=== PATIENT | female | born 1950 | race Caucasian/White ===

== ENCOUNTER 2022-01-16 14:28 | Emergency (ER) | payer MEDICARE, BC, SELFPAY ==
[2022-01-16 15:08] VITALS: BP 95/65; PULSE 72; RESP 18; TEMP 36.3; O2SAT 99; BMI 23.4
--- NOTE | 2022-01-16 15:48 | ED.URI ---
HPI - URI/Sore Throat General Time Seen by Provider: 15:49 Date Seen: 01/16/22 Chief Complaint: Cough Stated Complaint: Cough Weezing Time Seen by Provider: 01/16/22 15:02 Source: patient, RN notes reviewed and old records reviewed Mode of arrival: ambulatory Limitations: no limitations History of Present Illness HPI Narrative: Margaux is a 71-year-old female normally seen by [facility] who is brought to the emergency room by her son for evaluation of weakness and cough. Patient had the onset of a cough approximately a week ago. She has been getting weaker over the past 9 months and notes that over the past week it is axilla rated. She fell last night falling forward onto her face. She did not experience any loss of consciousness and states that she simply tripped. She denies feeling poorly or any prodromal symptoms. Patient notes that her cough is productive. She does not know if she has had a fever but she states she is always chilled. She denies any nausea vomiting or diarrhea. Her son is concerned because she has been getting weaker and weaker. She lives with her and another son at home in [place]. Patient denies headache or neck pain. She tells me that she has a history of stage III liver failure. She denies history of hepatitis-B C or alcohol use. She does have a history of tobacco use. Unfortunately, I do not have any records here at the [facility] but will attempt to obtain. Related Data Home Medications Medication Instructions Recorded Confirmed linaclotide .ROUTE 01/16/22 rivaroxaban .ROUTE 01/16/22 Allergies Allergy/AdvReac Type Severity Reaction Status Date / Time latex AdvReac Intermediate Nausea Verified 01/16/22 15:11 meperidine AdvReac Intermediate Nausea Verified 01/16/22 15:11 Review of Systems Status of ROS: Reports: 10 or more systems reviewed and unremarkable except as noted in History and below Const: Reports: chills, fatigue and malaise; Denies: fever Eyes: Denies: change in vision ENMT: Denies: throat pain, neck pain, difficulty swallowing or vertigo Cardio: Reports: swelling of feet/ankles (Patient states that this is chronic.) and shortness of breath with exertion (Does not worsen with ambulation); Denies: chest pain or palpitations Resp: Reports: shortness of breath (Does not worsen with ambulation) and cough (Productive); Denies: wheezing or coughing up blood GI: Denies: abdominal pain, nausea, vomiting, diarrhea or difficulty swallowing : Denies: painful urination Musculo: Denies: neck pain Integ/Breast: Denies: rash Neuro: Reports: weakness in extremities (Ongoing for the past 9 months last week axilla rated); Denies: headache, dizziness or vertigo Endo: Reports: fatigue Allergy/Immuno: Denies: wheezing PFSH PFSH Social History Smoking Status: Never smoker Do you use any of these nicotine containing products: None Second hand tobacco smoke exposure: No How often do you have a drink containing alcohol: never How often do you have six or more drinks on one occasion: Never AUDIT-C Alcohol total score: 0 Non-prescribed substance use: denies use service: No Exam Narrative: Exam Narrative: Patient is alert and oriented. She is sitting on the bed in the room wrapped in a blanket. She is pale in appearance. She is fatigued in appearance. Face symmetrical. Oral cavity with moist mucous membranes. Neck is supple without lymphadenopathy. Heart is with regular rate and rhythm. Lungs show decreased breath sounds right mid lung zone with wheezing. She is cachectic in appearance When soft nontender. Lower extremities with 2+ edema. No excessive redness and no calf tenderness. Const: Vital Signs, click to edit/add: Vital Signs - 24 hr 01/16/22 15:08 01/16/22 20:00 01/16/22 19:16 Temperature 97.4 F L Pulse Rate [Pulse Oximeter] 72 Respiratory Rate 18 16 Blood Pressure [Ri ght Upper Arm] 95/65 88/58 L 99/48 L Pulse Oximetry 99 100 99 Oxygen Delivery Me thod Room Air Room Air Room Air 01/16/22 16:00 01/16/22 17:00 01/16/22 18:00 Temperature Pulse Rate [Pulse Oximeter] Respiratory Rate Blood Pressure [Ri ght Upper Arm] 99/58 L 100/68 78/44 L Pulse Oximetry 99 100 100 Oxygen Delivery Me thod Room Air Room Air Room Air Course Course Hospital Course: Patient will receive saline lock, have CBC, comprehensive panel, CRP ordered. Chest x-ray at this time. Urinalysis checked as well. Differential diagnosis includes but is not limited to pneumonia, COPD exacerbation, heart failure, failure to thrive. Reevaluation(s) Reevaluation #1: Patient appears improved after fluids. Occasional productive coughing. Text x-ray read by Radiology shows no evidence of pneumonia. Patient remains afebrile with oxygen at 99% Reevaluation #2: Patient able to ambulate without assistance. Oxygen levels remain 99-100%. Vital Signs Vital signs: Initial Vital Signs Temperature 97.4 F L 01/16/22 15:08 Temperature Source Temporal Artery Scan 01/16/22 15:08 Pulse Rate 72 01/16/22 15:08 Respiratory Rate 18 01/16/22 15:08 Blood Pressure 95/65 01/16/22 15:08 Blood Pressure Mean 75 01/16/22 15:08 Blood Pressure Position Sitting 01/16/22 15:08 Pulse Oximetry 99 01/16/22 15:08 Oxygen Delivery Method 01/16/22 15:08 Vital Signs Temperature 97.4 F L 01/16/22 15:08 Pulse Rate 72 01/16/22 15:08 Respiratory Rate 18 01/16/22 15:08 Blood Pressure 95/65 01/16/22 15:08 Pulse Oximetry 99 01/16/22 15:08 Oxygen Delivery Method 01/16/22 15:08 Temperature 97.4 F L 01/16/22 15:08 Pulse Rate 72 01/16/22 15:08 Respiratory Rate 16 01/16/22 20:00 Blood Pressure 88/58 L 01/16/22 20:00 Pulse Oximetry 100 01/16/22 20:00 Oxygen Delivery Method 01/16/22 20:00 MDM - URI/Sore Throat MDM Narrative Medical decision making narrative: 1. COVID-patient is noted to have COVID for approximately 7 days and therefore not a candidate for antiviral therapy. At this time she is not hypoxic, that is not compromised in kidney function nor does she have leukocytosis. No evidence of pneumonia on x-ray. She is on a novel anticoagulant at this time. 2. Weakness-likely secondary to 1. At this time as she has been able to ambulate in the emergency room independently. I did suggest the use of a walker at home but she states that she does not need a walker. At this time I do not have criteria for admission based on her appearance in the emergency room 3. Head injury-head CT negative. No loss of consciousness but patient is on blood thinners. 4. Elevated proBNP-no evidence of heart failure on chest x-ray. Patient does have chronic lower extremity edema but states this is actually better than normal. 5. . Disposition-home with her son. We did a nebulizer prior to her discharge and objectively she seemed much improved although she did not think she had a lot of improvement. I did talk to her son about help at home and he does not feel that Margaux's or other son would be helpful to her. At this time I do not have criteria for an inpatient admission. I did explain that to family. If Margaux has any worsening symptoms such as vomiting, increasing weakness, chest pain, shortness of breath I would ask him to return to the emergency room for further evaluation. Patient did receive 1 L of saline in the emergency room as well. She appears improved versus initial presentation. Medical Records Medical records narrative: Requested records from [facility] system. Were told none available. Lab Data Attestation: I reviewed the patient's lab results. Labs: Lab Results 01/16/22 01/16/22 01/16/22 Range/Units 16:07 16:21 16:21 WBC 10.24 (4.50-11.00) K/uL RBC 3.43 L (4.00-5.20) m/uL Hgb 10.2 L (12.0-16.0) gm/dL Hct 30.3 L (33.0-51.0) % MCV 88 (80-100) fL MCH 30 (26-34) pg MCHC 34 (32-36) gm/dL RDW Coeff of Michael 20.7 H (11.5-15.5) % Plt Count 227 (140-440) K/uL Neut % (Auto) 77.3 H (42.0-72.0) % Lymph % (Auto) 18.7 L (20-44) % [place] % (Auto) 2.9 (0.0-11.0) % Eos % (Auto) 0.8 (0.0-7.0) % Baso % (Auto) 0.2 (0.0-3.0) % Neut # (Auto) 7.90 H (1.7-7.0) K/uL Lymph # (Auto) 1.90 (0.90-2.90) K/uL Y[place] # (Auto) 0.30 (0.00-0.90) K/UL Eos # (Auto) 0.08 (0.00-0.50) K/uL Baso # (Auto) 0.02 (0.00-0.30) K/uL Abs Immat Gran (auto) 0.01 (0.00-0.30) K/uL Sodium 137 (135-149) mmol/L Potassium 3.4 L (3.6-5.1) mmol/L Chloride 111 (96-114) mmol/L Carbon Dioxide 17 L (20-32) mmol/L BUN 11 (7-30) mg/dL Creatinine 1.1 (0.5-1.5) mg/dL Estimated Creat Clear 45.19 Estimated GFR 54 ml/min Glucose 82 (60-115) mg/dL Calcium 7.3 L (8.4-10.6) mg/dL Total Bilirubin 1.1 (0.1-1.5) mg/dL AST 42 H (12-35) U/L ALT 26 (4-35) U/L Alkaline Phosphatase 183 H (40-150) U/L C-Reactive Protein 3.8 H (0.5-1.0) mg/dL NT-Pro-B Natriuret Pep 1220 H (0-125) PG/mL Total Protein 5.9 L (6.0-8.3) g/dL Albumin 2.3 L (3.3-5.0) g/dL SARS-CoV-2 (PCR) POSITIVE SARS-CoV-2 A (Negative) Influenza Type A (PCR) Negative PCR FLU A (Negative) Influenza Type B (PCR) Negative PCR FLU B (Negative) Imaging Data Chest x-ray: Attestation: I have reviewed the pertinent imaging results. My impression: Increased lung markings but no obvious infiltrates Radiologist's impression: None. FINDINGS: Lungs: Clear lungs. No consolidation. Pleura: No pleural effusion or pneumothorax. Heart and Mediastinum: The cardiomediastinal silhouette is normal. The vessels are unremarkable. Bones: Unremarkable. IMPRESSION: No acute cardiopulmonary disease. CT scan - head: Attestation: I have reviewed the pertinent imaging results. My impression: No acute bleed. Radiologist's impression: Brain parenchyma and extra-axial spaces: The dunham-white differentiation is normal.? No sign of mass, hemorrhage, or midline shift. No extra-axial fluid collection.? Skull base and calvarium: Mild mucosal thickening of the maxillary sinuses. The other visualized paranasal sinuses and mastoid air cells demonstrate no acute or significant findings.? The visualized orbits are grossly unremarkable.? No skull fractures.? IMPRESSION: No acute intracranial abnormality. Discharge Plan Discharge Clinical Impression: COVID, Weakness Patient Disposition: Home w/ Parent or Adult Condition: Improved Additional Instructions: Recommend pushing fluids. Return to the emergency room for worsening symptoms. Currently your oxygen level is 99% and therefore normal. Suggest using walker or cane at home when ambulating to prevent fall. Prescriptions: No Action rivaroxaban [Xarelto] .ROUTE linaclotide [Linzess] .ROUTE Stand Alone [facility]: [facility]
[2022-01-16 16:00] VITALS: BP 99/58; O2SAT 99
--- NOTE | 2022-01-16 16:01 | CRLHL7_ITS ---
For Patients: As a result of the Cures Act, medical imaging exams and procedure reports are released immediately into your electronic medical record. You may view this report before your referring provider. If you have questions, please contact your health care provider. INDICATION: Cough. TECHNIQUE: Chest 1 views. COMPARISON: None. FINDINGS: Lungs: Clear lungs. No consolidation. Pleura: No pleural effusion or pneumothorax. Heart and Mediastinum: The cardiomediastinal silhouette is normal. The vessels are unremarkable. Bones: Unremarkable. IMPRESSION: No acute cardiopulmonary disease. Dictated by Dhaval Devi MD @ 01/16/2022 4:51:46 PM (Electronically Signed)
[2022-01-16 16:27] LABS: Basophils Absolute Auto 0.02 K/uL (0.00-0.30); Basophils Percent Auto 0.2 % (0.0-3.0); Eosinophils Absolute Auto 0.08 K/uL (0.00-0.50); Eosinophils Percent Auto 0.8 % (0.0-7.0); Hematocrit 30.3 % (33.0-51.0); Hemoglobin* 10.2 gm/dL (12.0-16.0); Immature Granulocytes Abs Auto 0.01 K/uL (0.00-0.30); Lymphocytes Percent Auto 18.7 % (20-44); Mean Corpuscular HGB Conc 34 gm/dL (32-36); Mean Corpuscular Hemoglobin 30 pg (26-34); Mean Corpuscular Volume 88 fL (80-100); Monocytes Percent Auto 2.9 % (0.0-11.0); Neutrophils Percent Auto 77.3 % (42.0-72.0); Platelet Count* 227 K/uL (140-440); RDW Coefficient of Variation % 20.7 % (11.5-15.5); Red Blood Count 3.43 m/uL (4.00-5.20); White Blood Count* 10.24 K/uL (4.50-11.00)
[2022-01-16 16:33] LABS: Slide Review Reflex No
[2022-01-16 16:42] LABS: Albumin* 2.3 g/dL (3.3-5.0); Chloride* 111 mmol/L (96-114); Sodium* 137 mmol/L (135-149)
[2022-01-16 16:43] LABS: Potassium* 3.4 mmol/L (3.6-5.1)
[2022-01-16 16:45] LABS: Alanine Aminotransferase* 26 U/L (4-35); Alkaline Phosphatase* 183 U/L (40-150); Aspartate Amino Transferase* 42 U/L (12-35); Bilirubin Total* 1.1 mg/dL (0.1-1.5); Blood Urea Nitrogen* 11 mg/dL (7-30); Carbon Dioxide* 17 mmol/L (20-32); Creatinine* 1.1 mg/dL (0.5-1.5); Est. Creatinine Clearance* 45.19; Estimated Glomerular Filt Rate 54 ml/min; Total Protein* 5.9 g/dL (6.0-8.3)
[2022-01-16 16:46] LABS: Calcium* 7.3 mg/dL (8.4-10.6); Glucose* 82 mg/dL (60-115)
[2022-01-16 16:48] LABS: C Reactive Protein* 3.8 mg/dL (0.5-1.0)
[2022-01-16 16:54] LABS: NT Pro B Type NatriureticPept* 1220 PG/mL (0-125)
[2022-01-16 17:00] VITALS: BP 100/68; O2SAT 100
[2022-01-16 17:05] LABS: PCR FLU A Negative PCR FLU A (Negative); PCR FLU B Negative PCR FLU B (Negative)
[2022-01-16 17:07] LABS: SARS PCR* POSITIVE SARS-CoV-2 (Negative)
--- NOTE | 2022-01-16 17:40 | CRLHL7_ITS ---
For Patients: As a result of the Century Cures Act, medical imaging exams and procedure reports are released immediately into your electronic medical record. You may view this report before your referring provider. If you have questions, please contact your health care provider. INDICATION: Fall, on Xarelto. TECHNIQUE: CT head without contrast. Coronal and sagittal reformats were generated. COMPARISON: None. FINDINGS: CSF spaces: Within normal limits for age. Brain parenchyma and extra-axial spaces: The dunham-white differentiation is normal. No sign of mass, hemorrhage, or midline shift. No extra-axial fluid collection. Skull base and calvarium: Mild mucosal thickening of the maxillary sinuses. The other visualized paranasal sinuses and mastoid air cells demonstrate no acute or significant findings. The visualized orbits are grossly unremarkable. No skull fractures. IMPRESSION: No acute intracranial abnormality. Please note that all CT scans at this facility use dose modulation, iterative reconstruction, and/or weight-based dosing when appropriate to reduce radiation dose to as low as reasonably achievable. Dictated by Dhaval Devi MD @ 01/16/2022 6:40:17 PM (Electronically Signed)
[2022-01-16 18:00] VITALS: BP 78/44; O2SAT 100
[2022-01-16] MEDS: 0.9 % SODIUM CHLORIDE 1000 ml 1,000 ML IV (18:10)
[2022-01-16] MEDS: 0.9 % SODIUM CHLORIDE 500 ML 500 ML IV (18:12)
[2022-01-16 19:16] VITALS: BP 99/48; O2SAT 99
[2022-01-16] MEDS: IPRAT-ALBUT 0.5-2.5 MG/3 ML NEB 1 NEB IH (19:27)
[2022-01-16 20:00] VITALS: BP 88/58; RESP 16; O2SAT 100
== END 2022-01-16 19:57 | disposition home or self-care (01) ==
PROVIDERS: Emergency Provider Family Medicine
DX: U07.1 COVID-19 (principal); R53.1 Weakness
CPT/HCPCS: 36415; 70450; 71045; 80053; 81001; 83880; 85025; 86140; 87631; 94640; 99284; 99285; J7030; J7120

== ENCOUNTER 2022-01-18 09:37 | Emergency (ER) | payer MEDICARE, BC, SELFPAY ==
[2022-01-18] VITALS (89 sets, daily range): BP systolic 73–123; BP diastolic 37–82; PULSE 44–110; TEMP 36.3; O2SAT 88–100; BMI 23.7
--- NOTE | 2022-01-18 09:50 | ED.NURSE ---
Pt incontinent of urine shortly after arrival. Pt soiled clothes removed and pt cleaned with padmini wipes. Clean brief applied.
[2022-01-18 10:20] LABS: SARS Antigen* positive (Negative)
--- NOTE | 2022-01-18 11:01 | CRLHL7_ITS ---
For Patients: As a result of the Century Cures Act, medical imaging exams and procedure reports are released immediately into your electronic medical record. You may view this report before your referring provider. If you have questions, please contact your health care provider. INDICATION: COUGH COVID TECHNIQUE: Chest 1 view COMPARISON: 01/16/2022 FINDINGS: Mild areas of scarring are noted bilaterally. Mediastinum is similar. No dense infiltrate. No edema or effusion. No pneumothorax. Degenerative changes. IMPRESSION: No acute findings. Dictated by Gurjit Carroll MD @ 01/18/2022 11:40:23 AM (Electronically Signed)
--- NOTE | 2022-01-18 11:01 | CRLHL7_ITS ---
For Patients: As a result of the Century Cures Act, medical imaging exams and procedure reports are released immediately into your electronic medical record. You may view this report before your referring provider. If you have questions, please contact your health care provider. Indication: DISTENDED ABD. COVID + Technique: Noncontrast CT abdomen and pelvis Please note that all CT scans at this facility use dose modulation, iterative reconstruction, and/or weight-based dosing when appropriate to reduce radiation dose to as low as reasonably achievable. Comparison: None Findings: Dependent areas of atelectasis are present within both lung bases. No pleural effusion. Cardiomegaly. Trace pericardial effusion suspected. Diffuse low attenuation of the hepatic parenchyma is present. There is a small amount of ascites surrounding the liver and spleen. The bladder is normal. Uterus unremarkable. No adnexal mass. Bilateral tubal ligation clips. Increased stool within the sigmoid colon. Mildly distended fluid-filled loops of ileum and jejunum. Mild wall thickening of the colon noted diffusely. Postop changes of midline abdominal wall incision. No abdominal wall hernia. No free air. Diffuse stranding within the mesenteric fat throughout the abdomen and pelvis. No adenopathy. No drainable fluid collection. Small amount of pelvic ascites. No hydronephrosis. Hemorrhagic or proteinaceous cyst upper pole left kidney. Simple cysts upper pole left kidney. No renal stone. Thickening of the adrenal glands. The gallbladder appears absent. 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 the pancreas is difficult to visualize. No fracture. Impression: Mild circumferential wall thickening of the colon and mildly distended fluid-filled loops of small bowel involving the jejunum and ileum suggesting diffuse enteritis/colitis or intrinsic pathology such as hypoalbuminemia. No mechanical obstruction or free air. Diffuse mesenteric stranding with mild ascites. No drainable fluid collection or abscess. Severe fatty steatosis. Possible cirrhosis. No splenomegaly. Postoperative changes to the upper abdomen. Pancreas is difficult to appreciate due to diminutive morphology without suspicious finding. Please note that all CT scans at this facility use dose modulation, iterative reconstruction, and/or weight-based dosing when appropriate to reduce radiation dose to as low as reasonably achievable. Dictated by Gurjit Carroll MD @ 01/18/2022 12:41:44 PM (Electronically Signed)
[2022-01-18] MEDS: 0.9 % SODIUM CHLORIDE 1000 ml 1,000 ML 500 ML IV (11:05)
--- NOTE | 2022-01-18 11:18 | CRLHL7_ITS ---
For Patients: As a result of the Century Cures Act, medical imaging exams and procedure reports are released immediately into your electronic medical record. You may view this report before your referring provider. If you have questions, please contact your health care provider. INDICATION: FALL. COVID + COMPARISON: 01/16/2022 TECHNIQUE: A CT volumetric acquisition was performed of the brain without IV contrast. Please note that all CT scans at this facility use dose modulation, iterative reconstruction, and/or weight-based dosing when appropriate to reduce radiation dose to as low as reasonably achievable. FINDINGS: Mucosal thickening within the paranasal sinuses again noted. No fracture. No intracranial hemorrhage or hydrocephalus. No extra-axial fluid collection. Mild chronic white matter changes. No intracranial mass. IMPRESSION: No intracranial hemorrhage or hydrocephalus. Bilateral sinus disease again noted. No change from the prior study. Please note that all CT scans at this facility use dose modulation, iterative reconstruction, and/or weight-based dosing when appropriate to reduce radiation dose to as low as reasonably achievable. Dictated by Gurjit Carroll MD @ 01/18/2022 12:47:49 PM (Electronically Signed)
--- NOTE | 2022-01-18 11:18 | CRLHL7_ITS ---
For Patients: As a result of the Century Cures Act, medical imaging exams and procedure reports are released immediately into your electronic medical record. You may view this report before your referring provider. If you have questions, please contact your health care provider. INDICATION: FALL. COVID + TECHNIQUE: CT cervical spine without contrast. COMPARISON: None FINDINGS: Vertebrae: Alignment is normal. There are no fractures or suspicious bony lesions. Discs and facet joints: Multilevel disc space narrowing and spurring. Minimal facet degeneration noted. Extraspinal findings: Prevertebral soft tissues, visualized airway, and visualized lungs are unremarkable. IMPRESSION: No cervical spine fracture. Please note that all CT scans at this facility use dose modulation, iterative reconstruction, and/or weight-based dosing when appropriate to reduce radiation dose to as low as reasonably achievable. Dictated by Gurjit Carroll MD @ 01/18/2022 12:50:42 PM (Electronically Signed)
--- NOTE | 2022-01-18 11:21 | ED_ITS ---
HPI - General Adult General Chief complaint: Weakness Stated complaint: UTI Time Seen by Provider: 01/18/22 10:49 Source: patient and family Mode of arrival: EMS Limitations: altered mental status History of Present Illness HPI narrative: 71-year-old female, looks much older than stated age, presents today for increasing weakness. Patient was seen in the the 16 of January and tested positive for COVID at that. , who brings her in today, states that in the last 2 days she has become significantly weaker. At baseline she lays in bed all day but she gets up to eat and go to the bathroom. He states that she has been like this for about 3 months. He states that today she was unable to get up at all. She fell out of bed and hit the floor, did not want to/could not get off the floor. It took 2 people to get her up. is unaware if she has been having any fevers. She continues to cough, but the cough appears better. She does have very loose stools, unclear how many times per day. She has not been able to eat anything today. No vomiting that the is aware of. Patient states that she feels very tired, is complaining of pain all over her body including her head and neck. Patient live together at home on supper force of the house. has been staying on her floor to keep an eye on her. is concerned because patient gives herself her own medications, she is on many medications, including narcotics, and he is unaware if she is taking them properly. Patient does have a history of low blood pressure, cirrhosis of the liver due to CAMARENA. Related Data Home Medications Medication Instructions Recorded Confirmed VITAMIN TRANSDERMAL PATCH 01/18/22 albuterol sulfate 90 mcg/actuation 1 - 2 puff inhalation Q4H 01/18/22 01/18/22 aerosol inhaler (Ventolin HFA) cetirizine 10 mg tablet (All Day 10 mg PO DAILY 01/18/22 01/18/22 Allergy (cetirizine)) cyanocobalamin (vitamin B-12) 1,000 mcg .Route Q7D 01/18/22 01/18/22 1,000 mcg/mL injection syringe furosemide 20 mg tablet 20 mg PO DAILY 01/18/22 01/18/22 guaifenesin 600 mg tablet, 600 mg PO BID PRN 01/18/22 01/18/22 extended release 12 hr (Mucinex) lactulose 10 gram/15 mL oral 20 g PO BID 01/18/22 01/18/22 solution linaclotide 145 mcg capsule 145 mcg PO DAILY 01/18/22 01/18/22 (Linzess) omeprazole 40 mg capsule,delayed 40 mg PO DAILY 01/18/22 01/18/22 release oxycodone 5 mg tablet 2.5 mg PO Q6H PRN 01/18/22 01/18/22 propranolol 80 mg capsule,24 80 mg PO DAILY 01/18/22 01/18/22 hr,extended release rivaroxaban 20 mg tablet (Xarelto) 20 mg PO QPM 01/18/22 01/18/22 Allergies Allergy/AdvReac Type Severity Reaction Status Date / Time latex AdvReac Intermediate Nausea Verified 01/18/22 15:00 meperidine AdvReac Intermediate Nausea Verified 01/18/22 15:00 Review of Systems Status of ROS: Reports: 10 or more systems reviewed and unremarkable except as noted in History and below PFSH PFS Medical History (Updated 01/18/22 @ 19:26 by Dakota Barnes MD) Cirrhosis DVT (deep venous thrombosis) Esophageal varices Iron deficiency anemia Obesity Pulmonary embolism Surgical History (Updated 01/18/22 @ 17:23 by Dakota Barnes MD) H/O repair of rotator cuff History of section History of colonoscopy History of gastric bypass History of total knee arthroplasty Family History (Updated 01/18/22 @ 19:16 by Dakota Barnes MD) Father Alcohol dependence Lung cancer Colon cancer Mother Coronary artery disease Social History (Updated 01/18/22 @ 19:17 by Dakota Barnes MD) Narrative: Patient lives with her . For months she has been primarily isolated to her room by choice. Primarily in bed. Minimal activity. Minimal social interaction. Healthcare power of sports attorney is her son Hal. Code status is full Smoking Status: Never smoker Do you use any of these nicotine containing products: None Second hand tobacco smoke exposure: No How often do you have a drink containing alcohol: never How often do you have six or more drinks on one occasion: Never AUDIT-C Alcohol total score: 0 Non-prescribed substance use: denies use service: No Exam Narrative: Exam Narrative: Weak appearing patient in no acute distress. Alert and oriented. Answers questions appropriately. Patient speaks in full sentences without needing to catch their breath. HEENT: Normocephalic. Pupils are equally round reactive to light. Extraocular muscles are intact. Conjunctivae are moist without any icterus noted, but her pale. Dry mucous membranes. Neck is soft. Abrasions over the face described below, no septal hematoma noted. No bleeding inside the mouth. Cardiovascular: Heart is regular rate and rhythm S1 and S2 are present without any murmurs. Lungs: Very mild bibasilar crackles. Patient takes deep breaths without any discomfort. Abdomen: Soft and nondistended with normal bowel sounds. She has diffuse tenderness throughout the entire abdomen. Extremities: Bilateral lower extremities show 2+ pitting edema. Skin: Well perfused without any obvious rashes. Patient does have multiple bruises in small abrasions over the upper extremities. She has 2 superficial abrasions on the face: 1 on the forehead and 1 on the nose. She has some petechia over the lower extremities left greater than the right. Const: Vital Signs, click to edit/add: Vital Signs - 24 hr 01/18/22 09:45 01/18/22 09:44 01/18/22 09:45 Temperature 97.3 F L Pulse Rate 80 82 Pulse Rate [Left P ulse Oximeter] 80 Blood Pressure 123/40 L Blood Pressure [Ri ght Upper Arm] 123/40 L Pulse Oximetry 99 100 100 Oxygen Delivery Me thod Room Air 01/18/22 10:00 01/18/22 10:05 01/18/22 10:15 Temperature Pulse Rate 76 81 65 Pulse Rate [Left P ulse Oximeter] Blood Pressure 106/63 Blood Pressure [Ri ght Upper Arm] Pulse Oximetry 100 89 98 Oxygen Delivery Me thod 01/18/22 10:16 01/18/22 10:30 01/18/22 10:31 Temperature Pulse Rate 79 77 79 Pulse Rate [Left P ulse Oximeter] Blood Pressure 92/37 L 91/69 Blood Pressure [Ri ght Upper Arm] Pulse Oximetry 100 100 100 Oxygen Delivery Me thod 01/18/22 10:45 01/18/22 10:47 01/18/22 11:00 Temperature Pulse Rate 64 67 Pulse Rate [Left P ulse Oximeter] Blood Pressure 91/50 L Blood Pressure [Ri ght Upper Arm] Pulse Oximetry 99 100 100 Oxygen Delivery Me thod 01/18/22 10:48 01/18/22 11:01 01/18/22 11:02 Temperature Pulse Rate 66 80 81 Pulse Rate [Left P ulse Oximeter] Blood Pressure 87/64 L Blood Pressure [Ri ght Upper Arm] Pulse Oximetry 100 100 100 Oxygen Delivery Me thod 01/18/22 11:47 01/18/22 12:00 01/18/22 12:01 Temperature Pulse Rate 91 53 L 81 Pulse Rate [Left P ulse Oximeter] Blood Pressure 97/82 97/65 Blood Pressure [Ri ght Upper Arm] Pulse Oximetry 98 92 100 Oxygen Delivery Me thod 01/18/22 12:17 01/18/22 12:30 01/18/22 12:31 Temperature Pulse Rate 67 70 67 Pulse Rate [Left P ulse Oximeter] Blood Pressure 89/59 L Blood Pressure [Ri ght Upper Arm] Pulse Oximetry 100 100 100 Oxygen Delivery Me thod 01/18/22 13:00 01/18/22 13:01 01/18/22 13:16 Temperature Pulse Rate 82 84 72 Pulse Rate [Left P ulse Oximeter] Blood Pressure 111/56 L 111/48 L Blood Pressure [Ri ght Upper Arm] Pulse Oximetry 99 100 100 Oxygen Delivery Me thod 01/18/22 13:17 01/18/22 13:30 01/18/22 13:32 Temperature Pulse Rate 44 L 67 66 Pulse Rate [Left P ulse Oximeter] Blood Pressure 83/43 L Blood Pressure [Ri ght Upper Arm] Pulse Oximetry 100 100 100 Oxygen Delivery Me thod 01/18/22 13:45 01/18/22 13:46 01/18/22 13:58 Temperature Pulse Rate 66 74 105 H Pulse Rate [Left P ulse Oximeter] Blood Pressure 73/40 L 87/67 L Blood Pressure [Ri ght Upper Arm] Pulse Oximetry 100 100 99 Oxygen Delivery Me thod 01/18/22 14:00 01/18/22 14:02 01/18/22 14:15 Temperature Pulse Rate 50 L 91 82 Pulse Rate [Left P ulse Oximeter] Blood Pressure 88/51 L Blood Pressure [Ri ght Upper Arm] Pulse Oximetry 100 100 100 Oxygen Delivery Me thod 01/18/22 14:16 01/18/22 14:17 01/18/22 14:30 Temperature Pulse Rate 56 L 93 81 Pulse Rate [Left P ulse Oximeter] Blood Pressure 97/60 Blood Pressure [Ri ght Upper Arm] Pulse Oximetry 88 98 100 Oxygen Delivery Me thod 01/18/22 14:31 01/18/22 14:46 01/18/22 15:01 Temperature Pulse Rate 77 84 82 Pulse Rate [Left P ulse Oximeter] Blood Pressure 81/50 L 94/66 Blood Pressure [Ri ght Upper Arm] Pulse Oximetry 100 100 100 Oxygen Delivery Me thod 01/18/22 15:02 01/18/22 15:16 01/18/22 15:17 Temperature Pulse Rate 90 88 90 Pulse Rate [Left P ulse Oximeter] Blood Pressure 93/59 L 99/63 Blood Pressure [Ri ght Upper Arm] Pulse Oximetry 100 99 100 Oxygen Delivery Me thod 01/18/22 15:30 01/18/22 15:32 01/18/22 15:45 Temperature Pulse Rate 74 74 78 Pulse Rate [Left P ulse Oximeter] Blood Pressure 87/50 L Blood Pressure [Ri ght Upper Arm] Pulse Oximetry 100 100 100 Oxygen Delivery Me thod 01/18/22 15:47 01/18/22 16:00 01/18/22 16:02 Temperature Pulse Rate 67 56 L 73 Pulse Rate [Left P ulse Oximeter] Blood Pressure 83/55 L 85/51 L Blood Pressure [Ri ght Upper Arm] Pulse Oximetry 100 100 100 Oxygen Delivery Me thod 01/18/22 16:15 01/18/22 16:16 01/18/22 16:30 Temperature Pulse Rate 87 89 90 Pulse Rate [Left P ulse Oximeter] Blood Pressure 98/56 L Blood Pressure [Ri ght Upper Arm] Pulse Oximetry 100 100 100 Oxygen Delivery Me thod 01/18/22 16:32 01/18/22 16:45 01/18/22 16:47 Temperature Pulse Rate 103 H 93 98 Pulse Rate [Left P ulse Oximeter] Blood Pressure 96/57 L 98/70 Blood Pressure [Ri ght Upper Arm] Pulse Oximetry 97 100 99 Oxygen Delivery Me thod 01/18/22 17:00 01/18/22 17:02 01/18/22 17:15 Temperature Pulse Rate 93 110 H 93 Pulse Rate [Left P ulse Oximeter] Blood Pressure 100/61 Blood Pressure [Ri ght Upper Arm] Pulse Oximetry 97 100 100 Oxygen Delivery Me thod 01/18/22 17:30 01/18/22 17:32 01/18/22 17:45 Temperature Pulse Rate 77 80 93 Pulse Rate [Left P ulse Oximeter] Blood Pressure 82/53 L Blood Pressure [Ri ght Upper Arm] Pulse Oximetry 100 98 100 Oxygen Delivery Me thod 01/18/22 18:00 01/18/22 18:02 01/18/22 18:15 Temperature Pulse Rate 79 77 74 Pulse Rate [Left P ulse Oximeter] Blood Pressure 81/49 L Blood Pressure [Ri ght Upper Arm] Pulse Oximetry 100 100 100 Oxygen Delivery Me thod 01/18/22 18:21 01/18/22 18:30 01/18/22 18:32 Temperature Pulse Rate 85 99 Pulse Rate [Left P ulse Oximeter] Blood Pressure 91/51 L 97/60 Blood Pressure [Ri ght Upper Arm] Pulse Oximetry 100 100 100 Oxygen Delivery Me thod 01/18/22 18:45 01/18/22 19:00 01/18/22 19:02 Temperature Pulse Rate 97 92 Pulse Rate [Left P ulse Oximeter] Blood Pressure 96/63 Blood Pressure [Ri ght Upper Arm] Pulse Oximetry 97 100 100 Oxygen Delivery Me thod 01/18/22 19:15 01/18/22 19:30 01/18/22 19:32 Temperature Pulse Rate 89 85 91 Pulse Rate [Left P ulse Oximeter] Blood Pressure 89/53 L Blood Pressure [Ri ght Upper Arm] Pulse Oximetry 100 100 100 Oxygen Delivery Me thod 01/18/22 19:33 01/18/22 19:45 01/18/22 20:00 Temperature Pulse Rate 88 96 92 Pulse Rate [Left P ulse Oximeter] Blood Pressure Blood Pressure [Ri ght Upper Arm] Pulse Oximetry 100 100 100 Oxygen Delivery Me thod 01/18/22 20:03 01/18/22 20:15 01/18/22 20:34 Temperature Pulse Rate 95 Pulse Rate [Left P ulse Oximeter] Blood Pressure 90/74 87/54 L Blood Pressure [Ri ght Upper Arm] Pulse Oximetry 100 99 Oxygen Delivery Me thod 01/18/22 21:02 01/18/22 21:12 01/18/22 21:15 Temperature Pulse Rate 94 95 Pulse Rate [Left P ulse Oximeter] Blood Pressure 86/47 L Blood Pressure [Ri ght Upper Arm] Pulse Oximetry 99 100 Oxygen Delivery Me thod Course Course Hospital Course: Labs were largely unchanged from 2 days ago. She she does have COVID-19 which is known. Urine did has some leukocyte esterase and urine nitrites-urine culture is pending. Chest x-ray was unremarkable. Given her abdominal discomfort we did go ahead and do an abdominal CT which showed diffuse colitis. Given her elevated D-dimer we did do a chest CT which did not show any PE. Given an unwitnessed fall and increased weakness, head CT and cervical spine CT were done-no acute findings. We did try to find a bed for the patient for admission given her weakness, we were unsuccessful in finding a bed anywhere. Therefore patient stayed in the ER for management. We did order her daily medications including propanolol, omeprazole, Xarelto, oxycodone p.r.n. We held her lactulose, Linzess, albuterol, Zyrtec and multivitamin per recommendation of Dr. Barnes, who we consulted. Physical therapy and manager social responsibility were also ordered. Vital Signs Vital signs: Initial Vital Signs Pulse Rate 80 01/18/22 09:44 Pulse Oximetry 100 01/18/22 09:44 Vital Signs Pulse Rate 80 01/18/22 09:44 Pulse Oximetry 100 01/18/22 09:44 Temperature 97.3 F L 01/18/22 09:45 Pulse Rate 95 01/18/22 21:15 Blood Pressure 86/47 L 01/18/22 21:02 Pulse Oximetry 100 01/18/22 21:15 Oxygen Delivery Method 01/18/22 09:45 Medical Decision Making [facility] [place] Narrative Medical decision making narrative: 71-year-old female with colitis, COVID-19, chronic weakness worsening-patient will remain in the ED for monitoring at this time. Medical Records Medical records reviewed: Yes I reviewed the patient's medical records Lab Data Lab results reviewed: Yes I reviewed the patient's lab results Labs: Lab Results 01/18/22 01/18/22 01/18/22 Range/Units 09:51 11:50 11:50 WBC 8.00 (4.50-11.00) K/uL RBC 3.57 L (4.00-5.20) m/uL Hgb 10.5 L (12.0-16.0) gm/dL Hct 30.7 L (33.0-51.0) % MCV 86 (80-100) fL MCH 29 (26-34) pg MCHC 34 (32-36) gm/dL RDW Coeff of Michael 20.4 H (11.5-15.5) % Plt Count 222 (140-440) K/uL Neut % (Auto) 86.6 H (42.0-72.0) % Lymph % (Auto) 9.0 L (20-44) % [place] % (Auto) 3.9 (0.0-11.0) % Eos % (Auto) 0.0 (0.0-7.0) % Baso % (Auto) 0.1 (0.0-3.0) % Neut # (Auto) 6.90 (1.7-7.0) K/uL Lymph # (Auto) 0.70 L (0.90-2.90) K/uL [place] # (Auto) 0.30 (0.00-0.90) K/UL Eos # (Auto) 0.00 (0.00-0.50) K/uL Baso # (Auto) 0.01 (0.00-0.30) K/uL Abs Immat Gran (auto) 0.03 (0.00-0.30) K/uL ESR 7 (2-20) mm/hr INR (0.91-1.10) D-Dimer Quant (PE/DVT) (0.00-0.50) ug/ml Sodium (135-149) mmol/L Potassium (3.6-5.1) mmol/L Chloride (96-114) mmol/L Carbon Dioxide (20-32) mmol/L BUN (7-30) mg/dL Creatinine (0.5-1.5) mg/dL Estimated Creat Clear Estimated GFR ml/min Glucose (60-115) mg/dL Lactate (0.5-1.9) mmol/L Calcium (8.4-10.6) mg/dL Magnesium (1.5-2.6) mg/dL Total Bilirubin (0.1-1.5) mg/dL Direct Bilirubin (0.0-0.5) mg/dL AST (12-35) U/L ALT (4-35) U/L Alkaline Phosphatase (40-150) U/L Troponin I (0.01-0.04) ng/mL C-Reactive Protein (0.5-1.0) mg/dL NT-Pro-B Natriuret Pep (0-125) PG/mL Total Protein (6.0-8.3) g/dL Albumin (3.3-5.0) g/dL Lipase (23-300) U/L Urine Color (Yellow) Urine Appearance (Clear) Urine pH (5.0-8.5) Ur Specific [place] (1.000-1.030) Urine Protein (Negative) Urine Glucose (UA) (Negative) Urine Ketones (Negative) Urine Blood (Negative) Urine Nitrite (Negative) Urine Bilirubin (Negative) Urine Urobilinogen (0.2-1.0) Ur Leukocyte Esterase (Negative) Urine RBC (0-2) Urine WBC (0-5) Urine WBC Clumps (None) Ur Squamous Epith Cells (None-Few) Urine Bacteria (None) Salicylates (1.0-10) mg/dL Urine Opiates Screen (Negative) Ur Oxycodone Screen (Negative) Urine Methadone Screen (Negative) Ur Propoxyphene Screen (Negative) Acetaminophen (10.0-30.0) ug/mL Ur Barbiturates Screen (Negative) U Tricyclic Antidepress (Negative) Ur Phencyclidine Scrn (Negative) Ur Amphetamines Screen (Negative) U Methamphetamines Scrn (Negative) U Benzodiazepines Scrn (Negative) Urine Cocaine Screen (Negative) U Marijuana (THC) Screen (Negative) Ur Drug Screen Comment Ethyl Alcohol (0.01-0.03) % SARS-CoV-2 Ag (Rapid) positive (Negative) 01/18/22 01/18/22 01/18/22 Range/Units 11:50 11:50 11:50 WBC (4.50-11.00) K/uL RBC (4.00-5.20) m/uL Hgb (12.0-16.0) gm/dL Hct (33.0-51.0) % MCV (80-100) fL MCH (26-34) pg MCHC (32-36) gm/dL RDW Coeff of Michael (11.5-15.5) % Plt Count (140-440) K/uL Neut % (Auto) (42.0-72.0) % Lymph % (Auto) (20-44) % [place] % (Auto) (0.0-11.0) % Eos % (Auto) (0.0-7.0) % Baso % (Auto) (0.0-3.0) % Neut # (Auto) (1.7-7.0) K/uL Lymph # (Auto) (0.90-2.90) K/uL [place] # (Auto) (0.00-0.90) K/UL Eos # (Auto) (0.00-0.50) K/uL Baso # (Auto) (0.00-0.30) K/uL Abs Immat Gran (auto) (0.00-0.30) K/uL ESR (2-20) mm/hr INR (0.91-1.10) D-Dimer Quant (PE/DVT) 2.92 H (0.00-0.50) ug/ml Sodium 137 (135-149) mmol/L Potassium 3.6 (3.6-5.1) mmol/L Chloride 113 (96-114) mmol/L Carbon Dioxide 16 L (20-32) mmol/L BUN 15 (7-30) mg/dL Creatinine 1.2 (0.5-1.5) mg/dL Estimated Creat Clear 41.42 Estimated GFR 49 ml/min Glucose 80 (60-115) mg/dL Lactate 2.1 H (0.5-1.9) mmol/L Calcium 7.2 L (8.4-10.6) mg/dL Magnesium 1.6 (1.5-2.6) mg/dL Total Bilirubin 2.1 H (0.1-1.5) mg/dL Direct Bilirubin 0.9 H (0.0-0.5) mg/dL AST 50 H (12-35) U/L ALT 26 (4-35) U/L Alkaline Phosphatase 177 H (40-150) U/L Troponin I 0.01 (0.01-0.04) ng/mL C-Reactive Protein 5.4 H (0.5-1.0) mg/dL NT-Pro-B Natriuret Pep (0-125) PG/mL Total Protein 5.9 L (6.0-8.3) g/dL Albumin 2.2 L (3.3-5.0) g/dL Lipase < 10 L (23-300) U/L Urine Color (Yellow) Urine Appearance (Clear) Urine pH (5.0-8.5) Ur Specific [place] (1.000-1.030) Urine Protein (Negative) Urine Glucose (UA) (Negative) Urine Ketones (Negative) Urine Blood (Negative) Urine Nitrite (Negative) Urine Bilirubin (Negative) Urine Urobilinogen (0.2-1.0) Ur Leukocyte Esterase (Negative) Urine RBC (0-2) Urine WBC (0-5) Urine WBC Clumps (None) Ur Squamous Epith Cells (None-Few) Urine Bacteria (None) Salicylates < 1.0 L (1.0-10) mg/dL Urine Opiates Screen (Negative) Ur Oxycodone Screen (Negative) Urine Methadone Screen (Negative) Ur Propoxyphene Screen (Negative) Acetaminophen < 10.0 L (10.0-30.0) ug/mL Ur Barbiturates Screen (Negative) U Tricyclic Antidepress (Negative) Ur Phencyclidine Scrn (Negative) Ur Amphetamines Screen (Negative) U Methamphetamines Scrn (Negative) U Benzodiazepines Scrn (Negative) Urine Cocaine Screen (Negative) U Marijuana (THC) Screen (Negative) Ur Drug Screen Comment Ethyl Alcohol < 0.01 L (0.01-0.03) % SARS-CoV-2 Ag (Rapid) (Negative) 01/18/22 01/18/22 01/18/22 Range/Units 11:50 11:58 14:10 WBC (4.50-11.00) K/uL RBC (4.00-5.20) m/uL Hgb (12.0-16.0) gm/dL Hct (33.0-51.0) % MCV (80-100) fL MCH (26-34) pg MCHC (32-36) gm/dL RDW Coeff of Michael (11.5-15.5) % Plt Count (140-440) K/uL Neut % (Auto) (42.0-72.0) % Lymph % (Auto) (20-44) % [place] % (Auto) (0.0-11.0) % Eos % (Auto) (0.0-7.0) % Baso % (Auto) (0.0-3.0) % Neut # (Auto) (1.7-7.0) K/uL Lymph # (Auto) (0.90-2.90) K/uL [place] # (Auto) (0.00-0.90) K/UL Eos # (Auto) (0.00-0.50) K/uL Baso # (Auto) (0.00-0.30) K/uL Abs Immat Gran (auto) (0.00-0.30) K/uL ESR (2-20) mm/hr INR 3.83 H (0.91-1.10) D-Dimer Quant (PE/DVT) (0.00-0.50) ug/ml Sodium (135-149) mmol/L Potassium (3.6-5.1) mmol/L Chloride (96-114) mmol/L Carbon Dioxide (20-32) mmol/L BUN (7-30) mg/dL Creatinine (0.5-1.5) mg/dL Estimated Creat Clear Estimated GFR ml/min Glucose (60-115) mg/dL Lactate (0.5-1.9) mmol/L Calcium (8.4-10.6) mg/dL Magnesium (1.5-2.6) mg/dL Total Bilirubin (0.1-1.5) mg/dL Direct Bilirubin (0.0-0.5) mg/dL AST (12-35) U/L ALT (4-35) U/L Alkaline Phosphatase (40-150) U/L Troponin I (0.01-0.04) ng/mL C-Reactive Protein (0.5-1.0) mg/dL NT-Pro-B Natriuret Pep 2050 H (0-125) PG/mL Total Protein (6.0-8.3) g/dL Albumin (3.3-5.0) g/dL Lipase (23-300) U/L Urine Color Yellow (Yellow) Urine Appearance Slightly Cloudy A (Clear) Urine pH 5.5 (5.0-8.5) Ur Specific [place] 1.010 (1.000-1.030) Urine Protein Negative (Negative) Urine Glucose (UA) Negative (Negative) Urine Ketones Negative (Negative) Urine Blood Negative (Negative) Urine Nitrite Positive A (Negative) Urine Bilirubin Negative (Negative) Urine Urobilinogen 1.0 (0.2-1.0) Ur Leukocyte Esterase Trace A (Negative) Urine RBC 0-2 (0-2) Urine WBC 2-5 (0-5) Urine WBC Clumps None (None) Ur Squamous Epith Cells None (None-Few) Urine Bacteria Many A (None) Salicylates (1.0-10) mg/dL Urine Opiates Screen (Negative) Ur Oxycodone Screen (Negative) Urine Methadone Screen (Negative) Ur Propoxyphene Screen (Negative) Acetaminophen (10.0-30.0) ug/mL Ur Barbiturates Screen (Negative) U Tricyclic Antidepress (Negative) Ur Phencyclidine Scrn (Negative) Ur Amphetamines Screen (Negative) U Methamphetamines Scrn (Negative) U Benzodiazepines Scrn (Negative) Urine Cocaine Screen (Negative) U Marijuana (THC) Screen (Negative) Ur Drug Screen Comment Ethyl Alcohol (0.01-0.03) % SARS-CoV-2 Ag (Rapid) (Negative) 01/18/22 Range/Units 14:10 WBC (4.50-11.00) K/uL RBC (4.00-5.20) m/uL Hgb (12.0-16.0) gm/dL Hct (33.0-51.0) % MCV (80-100) fL MCH (26-34) pg MCHC (32-36) gm/dL RDW Coeff of Michael (11.5-15.5) % Plt Count (140-440) K/uL Neut % (Auto) (42.0-72.0) % Lymph % (Auto) (20-44) % [place] % (Auto) (0.0-11.0) % Eos % (Auto) (0.0-7.0) % Baso % (Auto) (0.0-3.0) % Neut # (Auto) (1.7-7.0) K/uL Lymph # (Auto) (0.90-2.90) K/uL [place] # (Auto) (0.00-0.90) K/UL Eos # (Auto) (0.00-0.50) K/uL Baso # (Auto) (0.00-0.30) K/uL Abs Immat Gran (auto) (0.00-0.30) K/uL ESR (2-20) mm/hr INR (0.91-1.10) D-Dimer Quant (PE/DVT) (0.00-0.50) ug/ml Sodium (135-149) mmol/L Potassium (3.6-5.1) mmol/L Chloride (96-114) mmol/L Carbon Dioxide (20-32) mmol/L BUN (7-30) mg/dL Creatinine (0.5-1.5) mg/dL Estimated Creat Clear Estimated GFR ml/min Glucose (60-115) mg/dL Lactate (0.5-1.9) mmol/L Calcium (8.4-10.6) mg/dL Magnesium (1.5-2.6) mg/dL Total Bilirubin (0.1-1.5) mg/dL Direct Bilirubin (0.0-0.5) mg/dL AST (12-35) U/L ALT (4-35) U/L Alkaline Phosphatase (40-150) U/L Troponin I (0.01-0.04) ng/mL C-Reactive Protein (0.5-1.0) mg/dL NT-Pro-B Natriuret Pep (0-125) PG/mL Total Protein (6.0-8.3) g/dL Albumin (3.3-5.0) g/dL Lipase (23-300) U/L Urine Color (Yellow) Urine Appearance (Clear) Urine pH (5.0-8.5) Ur Specific [place] (1.000-1.030) Urine Protein (Negative) Urine Glucose (UA) (Negative) Urine Ketones (Negative) Urine Blood (Negative) Urine Nitrite (Negative) Urine Bilirubin (Negative) Urine Urobilinogen (0.2-1.0) Ur Leukocyte Esterase (Negative) Urine RBC (0-2) Urine WBC (0-5) Urine WBC Clumps (None) Ur Squamous Epith Cells (None-Few) Urine Bacteria (None) Salicylates (1.0-10) mg/dL Urine Opiates Screen Negative (Negative) Ur Oxycodone Screen POSITIVE A* (Negative) Urine Methadone Screen Negative (Negative) Ur Propoxyphene Screen Negative (Negative) Acetaminophen (10.0-30.0) ug/mL Ur Barbiturates Screen Negative (Negative) U Tricyclic Antidepress Negative (Negative) Ur Phencyclidine Scrn Negative (Negative) Ur Amphetamines Screen Negative (Negative) U Methamphetamines Scrn Negative (Negative) U Benzodiazepines Scrn Negative (Negative) Urine Cocaine Screen Negative (Negative) U Marijuana (THC) Screen Negative (Negative) Ur Drug Screen Comment See Note Ethyl Alcohol (0.01-0.03) % SARS-CoV-2 Ag (Rapid) (Negative) Imaging Data Chest x-ray: Attestation: I have reviewed the pertinent imaging results. My impression: No acute findings Radiologist's impression: Chest 1 view COMPARISON: 01/16/2022 FINDINGS: Mild areas of scarring are noted bilaterally. Mediastinum is similar. No dense infiltrate. No edema or effusion. No pneumothorax. Degenerative changes. IMPRESSION: No acute findings. CT scan - chest: Attestation: I have reviewed the pertinent imaging results. Radiologist's impression: CT chest PE was acquired with 95 mL Isovue 370 IV contrast. Coronal and sagittal reformats were generated. COMPARISON: None. FINDINGS: Pulmonary arteries: The quality of enhancement of the pulmonary arteries is adequate. No filling defects to suggest pulmonary emboli. No findings of pulmonary artery hypertension. Thyroid: Unremarkable. Thoracic lymph nodes: No enlarged supraclavicular, mediastinal, hilar, or axillary lymph nodes. Mediastinum and esophagus: Unremarkable. Heart and vasculature: Unremarkable. Lungs: Unremarkable. Pleura: Unremarkable. Chest wall: Unremarkable. Upper abdomen: No acute or significant findings. Bones: Unremarkable for age. IMPRESSION: 1. No pulmonary embolism. 2. Clear lungs. CT scan - abdomen: Attestation: I have reviewed the pertinent imaging results. Radiologist's impression: Noncontrast CT abdomen and pelvis Please note that all CT scans at this facility use dose modulation, iterative reconstruction, and/or weight-based dosing when appropriate to reduce radiation dose to as low as reasonably achievable. Comparison: None Findings: Dependent areas of atelectasis are present within both lung bases. No pleural effusion. Cardiomegaly. Trace pericardial effusion suspected. Diffuse low attenuation of the hepatic parenchyma is present. There is a small amount of ascites surrounding the liver and spleen. The bladder is normal. Uterus unremarkable. No adnexal mass. Bilateral tubal ligation clips. Increased stool within the sigmoid colon. Mildly distended fluid-filled loops of ileum and jejunum. Mild wall thickening of the colon noted diffusely. Postop changes of midline abdominal wall incision. No abdominal wall hernia. No free air. Diffuse stranding within the mesenteric fat throughout the abdomen and pelvis. No adenopathy. No drainable fluid collection. Small amount of pelvic ascites. No hydronephrosis. Hemorrhagic or proteinaceous cyst upper pole left kidney. Simple cysts upper pole left kidney. No renal stone. Thickening of the adrenal glands. The gallbladder appears absent. 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 the pancreas is difficult to visualize. No fracture. Impression: Mild circumferential wall thickening of the colon and mildly distended fluid- filled loops of small bowel involving the jejunum and ileum suggesting diffuse enteritis/colitis or intrinsic pathology such as hypoalbuminemia. No mechanical obstruction or free air. Diffuse mesenteric stranding with mild ascites. No drainable fluid collection or abscess. Severe fatty steatosis. Possible cirrhosis. No splenomegaly. Postoperative changes to the upper abdomen. Pancreas is difficult to appreciate due to diminutive morphology without suspicious finding. CT scan - head: Attestation: I have reviewed the pertinent imaging results. Radiologist's impression: A CT volumetric acquisition was performed of the brain without IV contrast. Please note that all CT scans at this facility use dose modulation, iterative reconstruction, and/or weight-based dosing when appropriate to reduce radiation dose to as low as reasonably achievable. FINDINGS: Mucosal thickening within the paranasal sinuses again noted. No fracture. No intracranial hemorrhage or hydrocephalus. No extra-axial fluid collection. Mild chronic white matter changes. No intracranial mass. IMPRESSION: No intracranial hemorrhage or hydrocephalus. Bilateral sinus disease again noted. No change from the prior study. Cervical spine CT: Attestation: I have reviewed the pertinent imaging results. Radiologist's impression: CT cervical spine without contrast. COMPARISON: None FINDINGS: Vertebrae: Alignment is normal. There are no fractures or suspicious bony lesions. Discs and facet joints: Multilevel disc space narrowing and spurring. Minimal facet degeneration noted. Extraspinal findings: Prevertebral soft tissues, visualized airway, and visualized lungs are unremarkable. IMPRESSION: No cervical spine fracture. ECG Data Attestation: I personally reviewed and interpreted this ECG as follows: (Normal sinus rhythm pulse of 95.) Discharge Plan Discharge Clinical Impression: COVID, Colitis, Weakness Patient Disposition: Pending Disposition
[2022-01-18 12:00] LABS: Lactate* 2.1 mmol/L (0.5-1.9)
[2022-01-18 12:03] LABS: Basophils Absolute Auto 0.01 K/uL (0.00-0.30); Basophils Percent Auto 0.1 % (0.0-3.0); Hematocrit 30.7 % (33.0-51.0); Hemoglobin* 10.5 gm/dL (12.0-16.0); Immature Granulocytes Abs Auto 0.03 K/uL (0.00-0.30); Mean Corpuscular HGB Conc 34 gm/dL (32-36); Mean Corpuscular Hemoglobin 29 pg (26-34); Mean Corpuscular Volume 86 fL (80-100); Monocytes Percent Auto 3.9 % (0.0-11.0); Neutrophils Percent Auto 86.6 % (42.0-72.0); Platelet Count* 222 K/uL (140-440); RDW Coefficient of Variation % 20.4 % (11.5-15.5); Red Blood Count 3.57 m/uL (4.00-5.20)
[2022-01-18 12:07] LABS: Slide Review Reflex No
[2022-01-18 12:22] LABS: Chloride* 113 mmol/L (96-114)
[2022-01-18 12:23] LABS: Albumin* 2.2 g/dL (3.3-5.0); Sodium* 137 mmol/L (135-149)
[2022-01-18 12:24] LABS: Potassium* 3.6 mmol/L (3.6-5.1)
[2022-01-18 12:25] LABS: Creatinine* 1.2 mg/dL (0.5-1.5); Est. Creatinine Clearance* 41.42; Estimated Glomerular Filt Rate 49 ml/min
[2022-01-18 12:26] LABS: Alkaline Phosphatase* 177 U/L (40-150); Aspartate Amino Transferase* 50 U/L (12-35); Bilirubin Direct* 0.9 mg/dL (0.0-0.5); Bilirubin Total* 2.1 mg/dL (0.1-1.5); Blood Urea Nitrogen* 15 mg/dL (7-30); Total Protein* 5.9 g/dL (6.0-8.3)
[2022-01-18 12:27] LABS: Alanine Aminotransferase* 26 U/L (4-35); Calcium* 7.2 mg/dL (8.4-10.6); Glucose* 80 mg/dL (60-115)
[2022-01-18 12:29] LABS: C Reactive Protein* 5.4 mg/dL (0.5-1.0)
[2022-01-18 12:35] LABS: NT Pro B Type NatriureticPept* 2050 PG/mL (0-125)
[2022-01-18 12:37] LABS: Acetaminophen* < 10.0 ug/mL (10.0-30.0); Ethanol* < 0.01 % (0.01-0.03); Lipase* < 10 U/L (23-300); Salicylate* < 1.0 mg/dL (1.0-10)
[2022-01-18 12:38] LABS: Troponin I* 0.01 ng/mL (0.01-0.04)
[2022-01-18 12:45] LABS: Erythrocyte SedimentationRate* 7 mm/hr (2-20)
--- NOTE | 2022-01-18 12:51 | PC.SOCIAL ---
Social work: Received call from pt's son, Hal [phone], stating pt is unable to return home at this time due to concerns about her needing more assistance than and family can provide. Son is requesting mcc placement. automobile body worker to follow up as needed.
[2022-01-18 12:56] LABS: D Dimer Quantitative* 2.92 ug/ml (0.00-0.50)
[2022-01-18 13:11] LABS: Carbon Dioxide* 16 mmol/L (20-32)
--- NOTE | 2022-01-18 13:42 | CRLHL7_ITS ---
For Patients: As a result of the Century Cures Act, medical imaging exams and procedure reports are released immediately into your electronic medical record. You may view this report before your referring provider. If you have questions, please contact your health care provider. INDICATION: Weakness, elevated D-dimer. TECHNIQUE: CT chest PE was acquired with 95 mL Isovue 370 IV contrast. Coronal and sagittal reformats were generated. COMPARISON: None. FINDINGS: Pulmonary arteries: The quality of enhancement of the pulmonary arteries is adequate. No filling defects to suggest pulmonary emboli. No findings of pulmonary artery hypertension. Thyroid: Unremarkable. Thoracic lymph nodes: No enlarged supraclavicular, mediastinal, hilar, or axillary lymph nodes. Mediastinum and esophagus: Unremarkable. Heart and vasculature: Unremarkable. Lungs: Unremarkable. Pleura: Unremarkable. Chest wall: Unremarkable. Upper abdomen: No acute or significant findings. Bones: Unremarkable for age. IMPRESSION: 1. No pulmonary embolism. 2. Clear lungs. Please note that all CT scans at this facility use dose modulation, iterative reconstruction, and/or weight-based dosing when appropriate to reduce radiation dose to as low as reasonably achievable. Dictated by Dhaval Devi MD @ 01/18/2022 4:03:58 PM (Electronically Signed)
--- NOTE | 2022-01-18 14:17 | ED.NURSE ---
collected a urine sample and sent to lab. straight cathed patient for 300cc of lindsey urine.
[2022-01-18 14:28] LABS: Appearance Urine Slightly Cloudy (Clear); Bilirubin Urine Negative (Negative); Blood Urine Negative (Negative); Color Urine Yellow (Yellow); Glucose Urine Negative (Negative); Ketones Urine Negative (Negative); Leukocyte Esterase Urine Trace (Negative); Nitrite Urine Positive (Negative); Protein Urine Negative (Negative); pH Urine 5.5 (5.0-8.5)
[2022-01-18 14:31] LABS: Amphetamine Screen Urine Negative (Negative); Barbiturate Screen Urine Negative (Negative); Benzodiazepines Screen Urine Negative (Negative); Cannabinoid Screen Urine Negative (Negative); Cocaine Screen Urine Negative (Negative); Methadone Screen Urine Negative (Negative); Methamphetamines Screen Urine Negative (Negative); Opiate Screen Urine Negative (Negative); Phencyclidine Screen Urine Negative (Negative); Tricyclic Antidepressant Urine Negative (Negative)
[2022-01-18 14:33] LABS: Oxycodone Screen Urine POSITIVE (Negative)
[2022-01-18 14:35] LABS: Bacteria Urine Many; RBC Urine 0-2 (0-2)
--- NOTE | 2022-01-18 16:09 | ED.NURSE ---
Pt complaining of pain at IV site in L AC. IV assessed, IV patent and good blood return. No pain with flush.
--- NOTE | 2022-01-18 16:56 | ED.NURSE ---
Pt assisted to void in bedpan.
[2022-01-18 17:33] LABS: INR 3.83 (0.91-1.10); Prothrombin Time 39.4 Seconds
[2022-01-18 17:46] LABS: Magnesium* 1.6 mg/dL (1.5-2.6)
--- NOTE | 2022-01-18 17:48 | ED.NURSE ---
Pt appears resting comfortably. Pt reports no pain at this time.
--- NOTE | 2022-01-18 18:58 | P.IMHP_ITS ---
Hospitalist- H&P: HPI History of Present Illness Date Seen: 01/18/22 Chief complaint: UTI Narrative: Margaux Pena is a 71 year old female with cirrhosis from [facility] and anticoagulated for previous PE presents for the 2nd time to the emergency room this week with weakness and falls. Patient was here 2 days ago and was diagnosed with a positive COVID test. At that time she was thought to have COVID symptoms for 1 week and not thought to be a candidate for early COVID treatment. She was discharged to home. She had another fall today and is brought in by her . He indicates that she is too weak to care for herself. History is obtained primarily from the patient who is unable to give significant details of any of her medical history or recent events. Her gives the most information and other details obtained from the medical record. She has had weakness for months. ER notes indicate this is been 3-9 months duration. tells me now that it has been several months that she has bad getting increasingly weak. When she fell today she was unable to help get herself up off the floor and because of that she came to the emergency room. For months patient has been primarily in bed in her room continuously. She does get up and go to the bathroom but otherwise isolates in her room by herself and has minimal interaction with other people and minimal physical activity. She tells me that she has been able to ambulate independently until recently. Cesia metz has started using a walker. notes that she was unable to walk on her own today at all. One month ago she had a CT of her abdomen in the clinic. This notably showed severe elizabeth colonic and rectal wall thickening and inflammation with adjacent fluid. This was thought to be an infectious or inflammatory colitis. As best I can tell she had no specific follow-up or treatment for it at that time. Notably today in the emergency department she had similar but apparently milder findings of colitis. She does have diarrhea but is chronically on Linzess and possibly lactulose. It is unclear how she is taking her medications or if she is taking her medications. She is unable to recall her medications purposes or dosing but she does self administer medications. She is followed by [facility] for her cirrhosis and [facility]. Extensive evaluation has not shown an alternative causes for liver cirrhosis. They have also done evaluation for her anemia and GI bleeding. She has had colonoscopy as recently as April of this year. Results of that are unknown but the recommended followup was 5 years. She has a history also of esophageal varices but no bleeding. She has chronic anemia thought secondary to chronic blood loss. 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 She also had capsule endoscopy showing polyps in the small intestine and nonbleeding AVMs. Previously iron studies were normal. She has been referred for bone marrow biopsy which she declines. She is on anticoagulation with rivaroxaban. She has had previous blood transfusions. Her medical record indicates that she has had a history of ulcerative colitis that has resolved. She is unable to give me any details about what that might mean. Review of Systems Narrative: Patient reports generalized pain. When asked identify the area worst pain she reports her abdomen. She reports generally feeling poorly. Having a lot of weakness. She specifically denies fever, sore throat, chest pain, syncope, dyspnea. She reports nausea and decreased appetite but she has been able to eat and drink. She reports no bloody emesis and no coffee-ground emesis and no melena or bright red blood per rectum. She tends have diarrhea. She has been on Linzess as well as lactulose. Unclear how on whether she is taking his medications. History of PE and DVT on chronic Xarelto. [facility] Medical History (Updated 01/18/22 @ 19:26 by Dakota Barnes MD) Cirrhosis DVT (deep venous thrombosis) Esophageal varices Iron deficiency anemia Obesity Pulmonary embolism Surgical History (Updated 01/18/22 @ 17:23 by Dakota Barnes MD) H/O repair of rotator cuff History of section History of colonoscopy History of gastric bypass History of total knee arthroplasty Family History (Updated 01/18/22 @ 19:16 by Dakota Barnes MD) Father Alcohol dependence Lung cancer Colon cancer Mother Coronary artery disease Social History (Updated 01/18/22 @ 19:17 by Dakota Barnes MD) Narrative: Patient lives with her . For months she has been primarily isolated to her room by choice. Primarily in bed. Minimal activity. Minimal social interaction. Healthcare power of media reporter is her son Hal. Code status is full Smoking Status: Never smoker Do you use any of these nicotine containing products: None Second hand tobacco smoke exposure: No How often do you have a drink containing alcohol: never How often do you have six or more drinks on one occasion: Never AUDIT-C Alcohol total score: 0 Non-prescribed substance use: denies use service: No Meds Home Medications and Allergies Home Medications Medication Instructions Recorded Confirmed Type VITAMIN TRANSDERMAL PATCH 01/18/22 History albuterol sulfate 90 mcg/actuation 1 - 2 puff inhalation Q4H 01/18/22 01/18/22 History aerosol inhaler (Ventolin HFA) cetirizine 10 mg tablet (All Day 10 mg PO DAILY 01/18/22 01/18/22 History Allergy (cetirizine)) cyanocobalamin (vitamin B-12) 1,000 mcg .Route Q7D 01/18/22 01/18/22 History 1,000 mcg/mL injection syringe furosemide 20 mg tablet 20 mg PO DAILY 01/18/22 01/18/22 History guaifenesin 600 mg tablet, 600 mg PO BID PRN 01/18/22 01/18/22 History extended release 12 hr (Mucinex) lactulose 10 gram/15 mL oral 20 g PO BID 01/18/22 01/18/22 History solution linaclotide 145 mcg capsule 145 mcg PO DAILY 01/18/22 01/18/22 History (Linzess) omeprazole 40 mg capsule,delayed 40 mg PO DAILY 01/18/22 01/18/22 History release oxycodone 5 mg tablet 2.5 mg PO Q6H PRN 01/18/22 01/18/22 History propranolol 80 mg capsule,24 80 mg PO DAILY 01/18/22 01/18/22 History hr,extended release rivaroxaban 20 mg tablet (Xarelto) 20 mg PO QPM 01/18/22 01/18/22 History Home Medication Comments: Patient is unsure of what medicine she takes in what doses and what frequency. She does manage her own medicines. Allergies Allergy/AdvReac Type Severity Reaction Status Date / Time latex AdvReac Intermediate Nausea Verified 01/18/22 15:00 meperidine AdvReac Intermediate Nausea Verified 01/18/22 15:00 Exam Narrative: Exam Narrative: She is alert. She appears in no obvious distress. Head is without trauma except for abrasions over her forehead and nose. Eyes are normal. Pupils equal and round and reactive to light. Extraocular movements are full. No nystagmus. No facial asymmetry. Oropharynx is normal except for dry mucous membranes. Tongue is midline. Neck is supple without mass or adenopathy. No tenderness. Respirations are clear to auscultation. Good air exchange all lung rose. Cardiovascular: S1, S2, regular rate and rhythm. No murmur gallop or rub. Abdomen: Bowel sounds active. Abdomen is soft with mild diffuse tenderness. No peritonitis. No obvious ascites. External genitalia normal. Upper extremities with prominent areas of noon old bruises involving much of both arms. Lower extremities with 4+ edema bilaterally. She has mild erythema of the skin on both upper and lower legs on both sides. She has palpable pulses and warm feet. No open ulcers. She has 4/5 strength in hip flexion, knee flexion and extension. 5/5 strength in ankle dorsiflexion plantar flexion and great toe dorsiflexion bilaterally. Upper extremity strength is 5/5 at finger extension, windshield wiper repairer strength, wrist flexion and extension, elbow flexion extension, shoulder flexion extension bilaterally. [id number] is accurate. Const: Vital Signs, click to edit/add: Vital Signs - 24 hr 01/18/22 09:45 01/18/22 09:44 01/18/22 09:45 Temperature 97.3 F L Pulse Rate 80 82 Pulse Rate [Left P ulse Oximeter] 80 Blood Pressure 123/40 L Blood Pressure [Ri ght Upper Arm] 123/40 L Pulse Oximetry 99 100 100 Oxygen Delivery Me od Room Air 01/18/22 10:00 01/18/22 10:05 01/18/22 10:15 Temperature Pulse Rate 76 81 65 Pulse Rate [Left P ulse Oximeter] Blood Pressure 106/63 Blood Pressure [Ri ght Upper Arm] Pulse Oximetry 100 89 98 Oxygen Delivery Pa thod 01/18/22 10:16 01/18/22 10:30 01/18/22 10:31 Temperature Pulse Rate 79 77 79 Pulse Rate [Left P ulse Oximeter] Blood Pressure 92/37 L 91/69 Blood Pressure [Ri ght Upper Arm] Pulse Oximetry 100 100 100 Oxygen Delivery Pa thod 01/18/22 10:45 01/18/22 10:47 01/18/22 11:00 Temperature Pulse Rate 64 67 Pulse Rate [Left P ulse Oximeter] Blood Pressure 91/50 L Blood Pressure [Ri ght Upper Arm] Pulse Oximetry 99 100 100 Oxygen Delivery Pa thod 01/18/22 10:48 01/18/22 11:01 01/18/22 11:02 Temperature Pulse Rate 66 80 81 Pulse Rate [Left P ulse Oximeter] Blood Pressure 87/64 L Blood Pressure [Ri ght Upper Arm] Pulse Oximetry 100 100 100 Oxygen Delivery Me thod 01/18/22 11:47 01/18/22 12:00 01/18/22 12:01 Temperature Pulse Rate 91 53 L 81 Pulse Rate [Left P ulse Oximeter] Blood Pressure 97/82 97/65 Blood Pressure [Ri ght Upper Arm] Pulse Oximetry 98 92 100 Oxygen Delivery Me thod 01/18/22 12:17 01/18/22 12:30 01/18/22 12:31 Temperature Pulse Rate 67 70 67 Pulse Rate [Left P ulse Oximeter] Blood Pressure 89/59 L Blood Pressure [Ri ght Upper Arm] Pulse Oximetry 100 100 100 Oxygen Delivery Me thod 01/18/22 13:00 01/18/22 13:01 01/18/22 13:16 Temperature Pulse Rate 82 84 72 Pulse Rate [Left P ulse Oximeter] Blood Pressure 111/56 L 111/48 L Blood Pressure [Ri ght Upper Arm] Pulse Oximetry 99 100 100 Oxygen Delivery Me thod 01/18/22 13:17 01/18/22 13:30 01/18/22 13:32 Temperature Pulse Rate 44 L 67 66 Pulse Rate [Left P ulse Oximeter] Blood Pressure 83/43 L Blood Pressure [Ri ght Upper Arm] Pulse Oximetry 100 100 100 Oxygen Delivery Me thod 01/18/22 13:45 01/18/22 13:46 01/18/22 13:58 Temperature Pulse Rate 66 74 105 H Pulse Rate [Left P ulse Oximeter] Blood Pressure 73/40 L 87/67 L Blood Pressure [Ri ght Upper Arm] Pulse Oximetry 100 100 99 Oxygen Delivery Me thod 01/18/22 14:00 01/18/22 14:02 01/18/22 14:15 Temperature Pulse Rate 50 L 91 82 Pulse Rate [Left P ulse Oximeter] Blood Pressure 88/51 L Blood Pressure [Ri ght Upper Arm] Pulse Oximetry 100 100 100 Oxygen Delivery Me thod 01/18/22 14:16 Temperature Pulse Rate 56 L Pulse Rate [Left P ulse Oximeter] Blood Pressure 97/60 Blood Pressure [Ri ght Upper Arm] Pulse Oximetry 88 Oxygen Delivery [facility] Hospitalist - H&P: Result Labs Labs: Short CBC 01/18/22 Range/Units 11:50 WBC 8.00 (4.50-11.00) K/uL Hgb 10.5 L (12.0-16.0) gm/dL Hct 30.7 L (33.0-51.0) % Plt Count 222 (140-440) K/uL BMP 01/18/22 11:50 Sodium 137 Potassium 3.6 Chloride 113 Carbon Dioxide 16 L BUN 15 Creatinine 1.2 Glucose 80 Calcium 7.2 L Cardiac Enzymes 01/18/22 Range/Units 11:50 Troponin I 0.01 (0.01-0.04) ng/mL Liver Function 01/18/22 Range/Units 11:50 Total Bilirubin 2.1 H (0.1-1.5) mg/dL Direct Bilirubin 0.9 H (0.0-0.5) mg/dL AST 50 H (12-35) U/L ALT 26 (4-35) U/L Alkaline Phosphatase 177 H (40-150) U/L Albumin 2.2 L (3.3-5.0) g/dL Urine 01/18/22 Range/Units 14:10 Urine Color Yellow (Yellow) Urine Appearance Slightly Cloudy A (Clear) Urine pH 5.5 (5.0-8.5) Ur Specific [place] 1.010 (1.000-1.030) Urine Protein Negative (Negative) Urine Glucose (UA) Negative (Negative) Imaging CT Chest/Ab/Pelvis: Radiologist's impression: CT chest abdomen and pelvis notable for finding of mild findings consistent with colitis or edema of the colon. Mild ascites. Changes from surgical bypass surgery also noted. Chest is clear no PE. CT scan - head: Radiologist's impression: Head and cervical spine CTs show no acute injury Assessment and Plan Assessment and plan (1) Weakness: Problem comment: This appears to be chronic problem which has gotten acutely worse. Likely acutely worse due to COVID. Expect that to improve in the next few days. Chronic weakness likely multifactorial including her comorbid conditions of cirrhosis, severe deconditioning, chronic GI problems and possible depression or other mental illness. Status: Acute (2) COVID: Problem comment: Does not appear to have serious COVID illness symptoms except fatigue and malaise. No evidence of respiratory infection at this time. Does not appear to be a candidate for COVID therapies. Likely not very beneficial and may be harmful with her cirrhosis Status: Acute (3) Cirrhosis: Problem comment: Apparently fairly severe cirrhosis of the liver. Status: Acute (4) Iron deficiency anemia: Problem comment: Chronic, probably stable Status: Acute (5) Lower extremity edema: Problem comment: Chronic, probably stable Status: Acute (6) Colitis: Problem comment: Chronic. By CT scan this appears to be better now than a month ago. Maybe needs another colonoscopy but had 1 in April of this year. Status: Acute Plan Admit to the hospital when bed becomes available. My recommendations at this time are for us to manage her medications as it is unclear that she can safely do this herself. She would benefit from physical therapy and occupational therapy to evaluate her functional status and her ability to perform ADLs. This appears to be in significant question at this time. As an outpatient followup of her colitis and referral for mental health evaluation treatment I appearing to be appropriate as well. Total time spent today is 80 minutes, 50 minutes in coordination of care and discussing with patient her and other providers ongoing evaluation management of her overall decline in health.
--- NOTE | 2022-01-18 21:18 | ED.NURSE ---
Pt heart rhythm on the monitor noted to become irregular, A-fib alarm on the monitor. Repeat EKG done by sign writer letterer or painter. When sign writer letterer or painter entered room to repeat EKG, sign writer letterer or painter noted pt had self-removed her IV at some point prior to sign writer letterer or painter's entry into room. IV was on the floor adjacent to pt bed, SL intact. Pt arm examined, no sign of any uncontrolled bleeding. Gauze bandage applied to IV site regardless. MD lin, stated pt okay to not have IV.
--- NOTE | 2022-01-18 21:52 | ED.NURSE ---
Report given to ALEJANDRO Eubanks.
[2022-01-18] MEDS: OxyCODONE/APAP 5-325 TABLET 0.5 TAB PO (22:50)
[2022-01-19] VITALS (18 sets, daily range): BP systolic 78–111; BP diastolic 49–82; PULSE 64–91; RESP 11–20; O2SAT 88–100
[2022-01-19] MEDS: OxyCODONE/APAP 5-325 TABLET 0.5 TAB PO (05:17)
--- NOTE | 2022-01-19 05:18 | ED.NURSE ---
pt. up to commode to urinate. scratches to right forearm that were bleeding a little were cleansed and covered with telfa and kerlix. pt. requesting pain medication.
[2022-01-19] MEDS: OMEPRAZOLE 20 MG CAPSULE DR PO (08:58)
[2022-01-19] MEDS: RIVAROXABAN 10 MG TABLET 20 MG PO (08:58)
[2022-01-19] MEDS: PROPRANOLOL ER 80 MG CAP PO (08:58)
[2022-01-19] MEDS: cefTRIAXone 1 GM VIAL IM (09:18)
[2022-01-19] MEDS: LIDOCAINE 1% 5 ml (pf) 5 ML VIAL 2.1 ML IM (09:19)
--- NOTE | 2022-01-19 10:06 | ED.NURSE ---
0834---checking patient and noted the pulse ox to be low around 82-88% range. placed O2 on at 2 liters via nc. patient was coughing some and repositioned in bed. eating breakfast and sitting up in the bed.
--- NOTE | 2022-01-19 11:38 | RESP.RT ---
Patient resting in bed, lying flat, on nasal cannula 2 Lpm with SaO2 96%. Was placed on nasal cannula by nursing for SaO2 in mid 80's%. Respiratory rate 18/minute, breathing regular/easy. Patient has good clear voice. Current Chest X-Ray shows some bilateral scarring, otherwise clear. Patient uses Albuterol MDI at home with a Spacer PRN as needed. Has not had a treatment here, discussed with patient if she feels the need to have an Albuterol treatment to please ask for it.
[2022-01-19] MEDS: ALBUTEROL SULFATE 2.5 MG/3 ML VIAL.NEB NEB (14:16)
--- NOTE | 2022-01-19 14:35 | ED.NURSE ---
up to the BSC with assist of two.
--- NOTE | 2022-01-19 16:31 | ED.NURSE ---
patient was found standing at the bedside with the door open wanting some help. this is the first the patient was able to climb out of the bed and was strong enough to do that. more comfortable in the bed and placed blankets on to warm up. updated the MD of the strengthening and improved from this am. dcd security monitor.
[2022-01-19] MEDS: 0.9 % SODIUM CHLORIDE 1000 ml 1,000 ML IV (18:00)
--- NOTE | 2022-01-19 18:04 | ED.NURSE ---
started #24 jelco as a saline lock in the left hand. able to infuse 0.9% normal saline one liter now. talked to Shaun as patient called to go home and can be reached at [phone] when patient is ready to be picked up.
--- NOTE | 2022-01-21 15:12 | PC.SOCIAL ---
Social work note: At MD request, called pt's son Hal at home regarding resources. Hal is interested in assisted living level of care or home care at home. Emailed research home economist care resources, Senior linkage line and research home economist care information. Discussed process for requesting MD order from primary care physician. Answered all son't questions. Son was appreciative of information provided.
== END 2022-01-19 19:48 | disposition home or self-care (01) ==
PROVIDERS: Emergency Provider Family Medicine
DX: U07.1 COVID-19 (principal); K52.9 Noninfective gastroenteritis and colitis, unspecified
CPT/HCPCS: 36415; 70450; 71045; 71260; 72125; 74176; 80048; 80076; 80143; 80179; 80306; 81001; 82077; 83605; 83690; 83735; 83880; 84484; 85025; 85379; 85610; 85651; 86140; 87086; 87186; 87426; 93005; 94640; 94761; 96365; 96372; 99285; A9270; J0696; J7030; Q9967